=== PATIENT | female | born 2000 | race African-American/Black ===

== ENCOUNTER 2023-09-21 15:01 | Emergency (ER) | payer MEDICAID, OTHER ==
[~2023-09-21] VITALS: Ht 165.1 cm; Wt 86.3 kg
[2023-09-21 15:54] VITALS: BP 115/79; PULSE 91; RESP 18; TEMP 98.6; O2SAT 96
[2023-09-21] MEDS ORDERED: IBUP-1456 PO (16:26)
[2023-09-21] MEDS: KETOROLAC TROMETH 60MG/2ML VIAL IM ONE (16:39)
== END 2023-09-21 17:01 | disposition home or self-care (01) ==
LOC: ER 15:09
DX: S93.491A Sprain of other ligament of right ankle, initial encounter (principal); X58.XXXA Exposure to other specified factors, initial encounter; Y93.56 Activity, jumping rope; Y92.89 Other specified places as the place of occurrence of the external cause; Y99.8 Other external cause status
CPT/HCPCS: 73610; 96372; 99283; J1885